=== PATIENT | male | born 1980 | race Caucasian/White ===

== ENCOUNTER → 2023-08-25 08:46 | Outpatient (REF) | payer OTHER, SELFPAY ==
[2023-08-25 10:26] LABS: % Basophils 0.6 % (0-2); % Eosinophils 2.6 % (0-6); % Immature Granulocytes 0.6 % (0-0.5); % Lymphocytes 22.5 % (20.5-51.1); % Monocytes 9.7 % (1.7-9.3); Absolute Basophils 0.1 10^3/uL (0-0.2); Absolute Eosinophils 0.3 10^3/uL (0-0.7); Absolute Immature Granulocytes 0.1 10^3/uL (0-0.05); Absolute Lymphocytes 2.4 10^3/uL (1.2-3.4); Absolute Monocytes 1.1 10^3/uL (0.1-0.6); Absolute Neutrophils 6.9 10^3/uL (1.4-6.5); Hematocrit 39.6 % (39.0-52.0); Hemoglobin 13.6 g/dL (13.0-18.0); Mean Corp Hgb Conc. 34.3 g/dL (33.0-37.0); Mean Corpuscular Hgb 31.8 pg (27.0-31.0); Mean Corpuscular Volume 92.5 fL (80.0-94.0); Mean Platelet Volume 10.2 fL (7.4-10.4); Nucleated Red Blood Cells % 0 % (-); Platelet Count 113 10^3/uL (130-400); Red Blood Cell Count 4.28 10^6/uL (4.70-6.10); Red Cell Dist. Width 13.8 % (11.5-14.5); White Blood Cell Count 10.8 10^3/uL (4.8-10.8)
[2023-08-25 11:23] LABS: Glycohemoglobin (HgbA1c) 5.8 % (4.0-5.6)
[2023-08-25 14:28] LABS: ALT (SGPT) 109 U/L (0-50); AST (SGOT) 109 U/L (17-59); Albumin 4.6 g/dl (3.5-5.0); Alkaline Phosphatase 126 U/L (38-126); Blood Urea Nitrogen 25 mg/dl (9-20); Calcium 9.6 mg/dl (8.4-10.2); Carbon Dioxide 26 mmol/L (22-30); Chloride 99 mmol/L (98-107); Glucose 103 mg/dl (70-99); Sodium 136 mmol/L (135-145); Total Bilirubin 1.1 mg/dl (0.2-1.3); Total Protein 8.3 g/dl (6.3-8.2); eGFR > 60.00
== END ==
LOC: REG 08:46
PROVIDERS: ATTENDING PHYSICIAN Family Medicine
DX: R73.01 Impaired fasting glucose (principal); R79.89 Other specified abnormal findings of blood chemistry; K70.31 Alcoholic cirrhosis of liver with ascites; Z87.19 Personal history of other diseases of the digestive system; K76.82 Hepatic encephalopathy; M25.572 Pain in left ankle and joints of left foot; Z87.81 Personal history of (healed) traumatic fracture; M54.50 Low back pain, unspecified; Z87.828 Personal history of other (healed) physical injury and trauma
CPT/HCPCS: 36415; 72110; 73610; 80053; 83036; 85025

== ENCOUNTER → 2023-09-19 11:27 | Outpatient (REF) | payer OTHER, SELFPAY ==
[2023-09-19 12:20] LABS: % Basophils 0.6 % (0-2); % Eosinophils 2.8 % (0-6); % Immature Granulocytes 0.8 % (0-0.5); % Lymphocytes 25.2 % (20.5-51.1); % Neutrophils 61.6 % (42.2-75.2); Absolute Basophils 0.1 10^3/uL (0-0.2); Absolute Eosinophils 0.3 10^3/uL (0-0.7); Absolute Immature Granulocytes 0.1 10^3/uL (0-0.05); Absolute Lymphocytes 2.7 10^3/uL (1.2-3.4); Absolute Neutrophils 6.7 10^3/uL (1.4-6.5); Hematocrit 42.2 % (39.0-52.0); Hemoglobin 14.3 g/dL (13.0-18.0); Mean Corp Hgb Conc. 33.9 g/dL (33.0-37.0); Mean Corpuscular Volume 91.5 fL (80.0-94.0); Mean Platelet Volume 10.4 fL (7.4-10.4); Nucleated Red Blood Cells % 0 % (-); Platelet Count 162 10^3/uL (130-400); Red Blood Cell Count 4.61 10^6/uL (4.70-6.10); Red Cell Dist. Width 13.2 % (11.5-14.5); White Blood Cell Count 10.9 10^3/uL (4.8-10.8)
[2023-09-19 12:29] LABS: INR 1.13; PT 14.3 Sec (11.4-14.6)
[2023-09-19 12:30] LABS: APTT 32.1 Sec (23.4-35.0)
[2023-09-19 12:47] LABS: ALT (SGPT) 119 U/L (0-50); AST (SGOT) 98 U/L (17-59); Albumin 4.7 g/dl (3.5-5.0); Alkaline Phosphatase 109 U/L (38-126); Blood Urea Nitrogen 18 mg/dl (9-20); Calcium 9.9 mg/dl (8.4-10.2); Carbon Dioxide 21 mmol/L (22-30); Chloride 103 mmol/L (98-107); Glucose 103 mg/dl (70-99); Potassium 4.5 mmol/L (3.5-5.1); Sodium 137 mmol/L (135-145); Total Bilirubin 1.1 mg/dl (0.2-1.3); Total Protein 8.2 g/dl (6.3-8.2); eGFR > 60.00
== END ==
LOC: REG 11:27
PROVIDERS: ATTENDING PHYSICIAN Internal Medicine; FAMILY PHYSICIAN Family Medicine
DX: K70.31 Alcoholic cirrhosis of liver with ascites (principal); R74.8 Abnormal levels of other serum enzymes; D69.6 Thrombocytopenia, unspecified; G89.29 Other chronic pain; Z86.39 Personal history of other endocrine, nutritional and metabolic disease
CPT/HCPCS: 36415; 80053; 82728; 85025; 85610; 85730

== ENCOUNTER → 2023-10-06 09:17 | Outpatient (REF) | payer OTHER, SELFPAY | LOC: RAD 09:17 | PROVIDERS: ATTENDING PHYSICIAN Internal Medicine; FAMILY PHYSICIAN Family Medicine | DX: K70.31 Alcoholic cirrhosis of liver with ascites (principal) | CPT/HCPCS: 76700 ==

== ENCOUNTER → 2023-10-16 10:28 | Outpatient (REF) | payer OTHER, SELFPAY | LOC: PAVMRI 10:28 | PROVIDERS: ATTENDING PHYSICIAN Anesthesiology Pain Medicine; FAMILY PHYSICIAN Family Medicine | DX: M54.59 Other low back pain (principal); M47.817 Spondylosis without myelopathy or radiculopathy, lumbosacral region; Z87.828 Personal history of other (healed) physical injury and trauma | CPT/HCPCS: 72148 ==

== ENCOUNTER → 2023-11-24 06:26 | Day surgery (SDC) | payer OTHER, SELFPAY | LOC: GI 06:26 | PROVIDERS: ATTENDING PHYSICIAN Internal Medicine | DX: K76.6 Portal hypertension (principal); K44.9 Diaphragmatic hernia without obstruction or gangrene; K31.89 Other diseases of stomach and duodenum; I85.10 Secondary esophageal varices without bleeding; I86.4 Gastric varices | CPT/HCPCS: 43239; 88305 ==

== ENCOUNTER 2023-12-22 06:38 | Day surgery (SDC) | payer OTHER, SELFPAY ==
[2023-12-22] VITALS (7 sets, daily range): BP systolic 97–116; BP diastolic 65–73; BMI 38.7; BMI 38.6
--- NOTE | 2023-12-22 07:11 | HP.FOC2 ---
Focused History & Physical
Chief Complaint
HPI:
Chief Complaint: Umbilical hernia
HPI / Indication for Planned Procedure: Patient is a 43-year-old male presenting for scheduled operative correction of symptomatic, longstanding umbilical hernia.
Relevant Past Medical History: Other (EtOH cirrhosis, chronic back pain)
Relevant Social History: ETOH (Not active currently) and Tobacco Use (Former)
Relevant Family History: Negative
Relevant Past Surgical History: Positive for (Left ankle ORIF, back surgery, left hip surgery)
Review of Systems
Review of Pertinent Systems: All Systems Negative
Medication
See Medication form for detailed medications: Yes
Medication List (including Herbals & OTC):
folic acid 1 mg tablet 1 mg PO DAILY 03/28/22
furosemide 40 mg tablet 40 mg PO BID 30 days #60 tabs 03/31/22
nadolol 20 mg tablet 20 mg PO DAILY 30 days #30 tabs 03/31/22
pantoprazole 40 mg tablet,delayed release 40 mg PO BID 30 days #60 tabs 03/31/22
spironolactone 50 mg tablet 100 mg (2 x 50 mg) PO DAILY 30 days #60 tabs 03/31/22
ascorbic acid (vitamin C) 500 mg tablet (Vitamin C) 500 mg PO DAILY 12/12/23
cholecalciferol (vitamin D3) 125 mcg (5,000 unit) tablet (Vitamin D3) 125 mcg PO DAILY 12/12/23
lactulose 20 gram/30 mL oral solution 20 g PO DAILY 12/12/23
Medications Reviewed: Yes
Allergies and Reactions
Patient has Allergies: Yes
Noted Allergies and Reactions:
Allergy/AdvReac Type Severity Reaction Status Date / Time
grass pollen Allergy red, puffy Verified 12/12/23 14:38
eyes
No Known Drug Allergies Allergy NA Verified 12/12/23 14:55
Pertinent Physical Exam
All Other Systems: Negative
Head/Neck: Normal
Lungs: Normal
Heart: Normal
Abdomen: Other (Soft, reducible umbilical hernia estimated fascial defect 2 cm)
Extremities: Normal
Neurological: Normal
Diagnosis / Assessment
43-year-old male presented for scheduled operative correction symptomatic umbilical hernia
Plan / Procedure
Open umbilical herniorrhaphy with mesh
Anesthesia/Sedation to be done by Anesthesia Provider: Yes
[2023-12-22] MEDS: NORMOSOL-R 1000 IV (08:16)
--- NOTE | 2023-12-22 10:34 | W.SUR.PREOP ---
Pre-Operative Surgical Note
-
I have examined this patient prior to the performance of the scheduled procedure.
The patient's condition is unchanged from the time of the current History and
Physical and the patient is able to undergo the scheduled procedure.
[2023-12-22] MEDS: TYLENOL 1000 MG PO (10:51)
--- NOTE | 2023-12-22 12:57 | W.IMMPOSTOP ---
Addendum entered and electronically signed by Jose York MD 12/22/23 13:04:
#[id number]
Original Note:
Surgical Immed Post Op Note
-
Primary Surgeon: Jaylen
Assisting Surgeon: None
Pre-op Diagnosis: UH
Post-op Diagnosis: UH 1.5cm
Procedure Performed: Open umbilical hernia with mesh; Ventralex ST 4.3 cm round
Anesthesia Type: General LMA + 1% lido with epi
Specimen / Cultures: None
Estimated Blood Loss: 14 mL
Complications: None immediate
Operative Findings: 1.5 cm reducible umbilical hernia. Preperitoneal underlay mesh repair. Ventralex ST 4.3 cm round. Closure of fascial defect with 0 PDS.
== END 2023-12-22 15:15 | disposition home or self-care (01) ==
LOC: SDS 06:38
PROVIDERS: ATTENDING PHYSICIAN Surgery
DX: K42.9 Umbilical hernia without obstruction or gangrene (principal); K70.30 Alcoholic cirrhosis of liver without ascites; K76.6 Portal hypertension
CPT/HCPCS: 49593; C1776; C1781

== ENCOUNTER → 2024-04-08 07:06 | Outpatient (REF) | payer OTHER, SELFPAY | LOC: RAD 07:06 | PROVIDERS: ATTENDING PHYSICIAN Internal Medicine; FAMILY PHYSICIAN Student in an Organized Health Care Education/Training Program | DX: K70.31 Alcoholic cirrhosis of liver with ascites (principal) | CPT/HCPCS: 76700 ==

== ENCOUNTER 2024-07-01 06:36 | Day surgery (SDC) | payer OTHER, SELFPAY | END 2024-07-01 08:54 | disposition home or self-care (01) | LOC: GI 06:36 | PROVIDERS: ATTENDING PHYSICIAN Internal Medicine; FAMILY PHYSICIAN Family Medicine | DX: Z12.11 Encounter for screening for malignant neoplasm of colon (principal); K64.8 Other hemorrhoids; K57.30 Diverticulosis of large intestine without perforation or abscess without bleeding; Z80.0 Family history of malignant neoplasm of digestive organs | CPT/HCPCS: G0105 ==

== ENCOUNTER → 2024-09-21 09:11 | Outpatient (REF) | payer OTHER, SELFPAY | LOC: RAD 09:11 | PROVIDERS: ATTENDING PHYSICIAN Student in an Organized Health Care Education/Training Program | DX: M25.512 Pain in left shoulder (principal) | CPT/HCPCS: 73030 ==

== ENCOUNTER → 2024-10-20 10:58 | Outpatient (REF) | payer OTHER, SELFPAY ==
[2024-10-20 12:43] LABS: ALT (SGPT) 93 U/L (0-50); AST (SGOT) 64 U/L (17-59); Albumin 4.8 g/dl (3.5-5.0); Alkaline Phosphatase 88 U/L (38-126); Blood Urea Nitrogen 21 mg/dl (9-20); Calcium 10.6 mg/dl (8.4-10.2); Carbon Dioxide 28 mmol/L (22-30); Chloride 102 mmol/L (98-107); Glucose 113 mg/dl (70-99); Potassium 5.2 mmol/L (3.5-5.1); Sodium 140 mmol/L (135-145); Total Bilirubin 0.8 mg/dl (0.2-1.3); Total Protein 8.6 g/dl (6.3-8.2); Uric Acid 6.6 mg/dl (3.5-8.5); eGFR > 60.00
== END ==
LOC: REG 10:58
PROVIDERS: ATTENDING PHYSICIAN Student in an Organized Health Care Education/Training Program
DX: R74.01 Elevation of levels of liver transaminase levels (principal); E83.52 Hypercalcemia; M10.9 Gout, unspecified
CPT/HCPCS: 36415; 80053; 84550

== ENCOUNTER → 2024-11-18 09:52 | Outpatient (REF) | payer OTHER, SELFPAY | LOC: MRI 3T 09:52 | PROVIDERS: ATTENDING PHYSICIAN Internal Medicine; FAMILY PHYSICIAN Student in an Organized Health Care Education/Training Program | DX: K70.30 Alcoholic cirrhosis of liver without ascites (principal) | CPT/HCPCS: 74183; A9581 ==

== ENCOUNTER → 2025-01-06 07:58 | Outpatient (REF) | payer OTHER, SELFPAY ==
[2025-01-06 09:46] LABS: Hematocrit 42.0 % (39.0-52.0); Hemoglobin 14.1 g/dL (13.0-18.0); Mean Corp Hgb Conc. 33.6 g/dL (33.0-37.0); Mean Corpuscular Volume 94.8 fL (80.0-94.0); Nucleated Red Blood Cells % 0 % (-); Platelet Count 131 10^3/uL (130-400); Red Cell Dist. Width 14.8 % (11.5-14.5)
[2025-01-06 10:01] LABS: INR 0.98; PT 13.5 Sec (11.4-14.6)
[2025-01-06 10:20] LABS: ALT (SGPT) 304 U/L (0-50); AST (SGOT) 417 U/L (17-59); Albumin 4.4 g/dl (3.5-5.0); Alkaline Phosphatase 126 U/L (38-126); Blood Urea Nitrogen 12 mg/dl (9-20); Calcium 9.0 mg/dl (8.4-10.2); Carbon Dioxide 23 mmol/L (22-30); Chloride 103 mmol/L (98-107); GGTP 968 U/L (15-73); Glucose 102 mg/dl (70-99); Potassium 3.7 mmol/L (3.5-5.1); Sodium 137 mmol/L (135-145); Total Protein 7.6 g/dl (6.3-8.2); eGFR > 60.00
[2025-01-06 19:15] LABS: Hepatitis A Antibody, Total Negative (Negative)
[2025-01-08 17:39] LABS: 5' Nucleotidase Results 38 U/L (0-15)
== END ==
LOC: REG 07:58
PROVIDERS: ATTENDING PHYSICIAN Internal Medicine; FAMILY PHYSICIAN Student in an Organized Health Care Education/Training Program
DX: K70.30 Alcoholic cirrhosis of liver without ascites (principal); R74.8 Abnormal levels of other serum enzymes; N52.9 Male erectile dysfunction, unspecified
CPT/HCPCS: 36415; 80053; 82784; 82977; 83915; 84403; 85025; 85610; 86706; 86708